=== PATIENT | male | born 2000 | race Hispanic/Latino ===

== ENCOUNTER 2021-08-18 23:06 | Emergency (ER) | payer OTHER ==
[2021-08-19] MEDS ORDERED: Metoclopramide HCl 10 MG/2 ML VIAL ONE (00:08)
[2021-08-19] MEDS ORDERED: Acetaminophen 500 MG TAB PO SCH (00:30)
[2021-08-19 00:52] LABS: Actual Bicarbonate (HCO3a) 18.8 mEq/L (22-28); Base Excess (BEa) -3.4 mEq/L (-2.0 to +3.0); CO2 Tension 27.2 mmHg (35.0-45.0); Calcium, Ionized (arterial) 1.17 mmol/L (1.12-1.30); Hemoglobin (Hb) 15.1 g/dL (14.0-18.0); O2 Tension (PaO2), arterial 126.5 mmHg (80.0-100.0); Potassium - ABG Lab 4.1 mmol/L (3.70-5.30); Puncture Site RRA; pH, Arterial 7.46 (7.35-7.45)
== END 2021-08-19 00:51 | disposition home or self-care (01) ==
LOC: CSHERS 23:06
DX: R51.9 Headache, unspecified (principal); Z77.29 Contact with and (suspected) exposure to other hazardous substances
CPT/HCPCS: 36600; 82805; 96365; J2765